=== PATIENT | female | born 2000 | race Caucasian/White ===

== ENCOUNTER → 2024-03-27 | Outpatient (CLI) | payer OTHER ==
[2024-03-27 11:22] LABS: BASO % 0.6 % (0.0-1.0); EOS # 0.1 10^3/uL (0.0-0.5); EOS % 1.7 % (0.0-3.0); HEMATOCRIT 39.7 % (36.0-47.0); HEMOGLOBIN 12.4 g/dl (12.0-15.5); LYMPH # 2.1 10^3/uL (1.5-5.0); LYMPH % 40.2 % (24.0-44.0); MEAN CORPUSCULAR HEMOGLOBIN 27.4 pg (27.0-33.0); MEAN CORPUSCULAR HGB CONC 31.2 g/dl (32.0-36.5); MEAN CORPUSCULAR VOLUME 87.6 fl (80.0-96.0); MONO # 0.4 10^3/uL (0.0-0.8); MONO % 7.6 % (2.0-8.0); NEUTROPHILS # 2.6 10^3/uL (1.5-8.5); NEUTROPHILS % 49.5 % (36.0-66.0); PLATELET COUNT, AUTOMATED 337 10^3/uL (150-450); RED BLOOD COUNT 4.53 10^6/uL (4.00-5.40); WHITE BLOOD COUNT 5.3 10^3/uL (4.0-10.0)
[2024-03-27 11:49] LABS: FREE T4 0.93 NG/DL (0.89-1.76); TOTAL IRON BINDING CAPACITY 317 UG/DL (250-425)
[2024-03-27 11:50] LABS: FERRITIN 47.2 NG/ML (7.3-270.7); THYROID STIMULATING HORMONE 1.122 uIU/ML (0.55-4.78)
[2024-03-27 11:51] LABS: ALBUMIN 3.4 G/DL (3.2-5.2); ALKALINE PHOSPHATASE 85 U/L (35-104); ALT/SGPT 21 U/L (7.0-40); AST/SGOT 16 U/L (<34); BILIRUBIN,TOTAL 0.3 MG/DL (0.3-1.2); BLOOD UREA NITROGEN 10 MG/DL (9-23); CALCIUM LEVEL 9.4 MG/DL (8.5-10.1); CARBON DIOXIDE LEVEL 27 MMOL/L (20-31); CHLORIDE LEVEL 107 MMOL/L (98-107); CHOLESTEROL LEVEL 168 MG/DL (<200); CHOLESTEROL RISK RATIO 4.71 (<5); CREATININE FOR GFR 0.68 MG/DL (0.55-1.30); GLOMERULAR FILTRATION RATE > 60.0 (>60); GLUCOSE, FASTING 91 MG/DL (60-100); HDL CHOLESTEROL 35.6 MG/DL (>40); IRON (FE) 43 UG/DL (50-170); LDL CHOLESTEROL 103.6 MG/DL (<100); NON-HDL-C 132.4 MG/DL; PERCENT SATURATION 13.6 % (13.2-45.0); POTASSIUM SERUM 4.5 MMOL/L (3.5-5.1); SODIUM LEVEL 142 MMOL/L (136-145); TOTAL PROTEIN 7.2 G/DL (5.7-8.2); TRIGLYCERIDES LEVEL 144 MG/DL (<150)
[2024-03-27 12:21] LABS: HEMOGLOBIN A1c 5.5 % (4.0-6.0)
[2024-03-27 17:28] LABS: THYROID PEROXIDASE ANTIBODY > 1300.0 U/ML (<60.0)
== END ==
LOC: M LAB 10:28
PROVIDERS: ATTEND Nurse Practitioner Family
DX: L65.9 Nonscarring hair loss, unspecified (principal); R73.03 Prediabetes

== ENCOUNTER → 2024-03-29 | Outpatient (REF) | payer OTHER | LOC: M LAB REF 14:25 | PROVIDERS: ATTEND Family Medicine | DX: Z30.432 Encounter for removal of intrauterine contraceptive device (principal) ==

== ENCOUNTER → 2024-08-18 | Outpatient (CLI) | payer OTHER ==
[2024-08-18 12:05] LABS: BLOOD UREA NITROGEN 9 MG/DL (9-23); CALCIUM LEVEL 8.8 MG/DL (8.5-10.1); CARBON DIOXIDE LEVEL 29 MMOL/L (20-31); CHLORIDE LEVEL 105 MMOL/L (98-107); CREATININE FOR GFR 0.63 MG/DL (0.55-1.30); GLOMERULAR FILTRATION RATE > 90.0 (>60); GLUCOSE, FASTING 85 MG/DL (60-100); POTASSIUM SERUM 4.7 MMOL/L (3.5-5.1); SODIUM LEVEL 140 MMOL/L (136-145)
[2024-08-18 12:06] LABS: CORTISOL AM 14.9 UG/DL (4.3-22.4)
[2024-08-18 12:09] LABS: FREE T4 0.99 NG/DL (0.89-1.76); TESTOSTERONE 27 NG/DL (14-76); THYROID STIMULATING HORMONE 1.441 uIU/ML (0.55-4.78)
== END ==
LOC: M LAB 10:05
PROVIDERS: ATTEND Nurse Practitioner Family
DX: E06.3 Autoimmune thyroiditis (principal)